=== PATIENT | male | born 1970 | race Caucasian/White ===

== ENCOUNTER 2019-01-03 16:05 | Emergency (ER) | payer SELFPAY ==
--- NOTE | 2019-01-03 16:50 | ED ---
Substance Abuse/Use - HPI Summary HPI Summary: A 48 y/o male brought in by police presents to [facility] with a chief complaint of being brought in on a 2209 on 01/03/19. At triage he rated his pain as a 0/10 in severity. Pt denies any fever, chills, erythema of eyes, sore throat, CP, SOB , cough, abdominal pain, N/V, dysuria, hematuria, myalgia, edema, rash, or dizziness. He reports that he has been living with her mom but she moved away and he was not allowed to go with her, which he reports is fine. He says that he was partying too hard, as he drinks beer daily, smokes cigarettes, and says hell have marijuana if someone passes it to him. He reports that he was living in a shed with a space heater, and is unsure where he will go afterwards. He claims that his last drink was while being arrested. He claims that he does not know what it is like to go without a drink. He denies taking any medications and is not looking to detox. Vital signs while in room HR: 121bpm, O2 Sat: 95, BP: 145/102. - History Of Current Complaint Chief Complaint: EDSubstanceAbuse Stated Complaint: INTOXICATED/2208 PER POLICE Time Seen by Provider: 01/03/19 16:35 Hx Obtained From: Patient, Other: - police Onset/Duration of Drug/ETOH Abuse: Days Ingestion History: Type/Name Of Drug - EtOH, Amount Ingested - unknown, Approximate Time Of Ingestion - unknown Overdose Characteristics: Oral Timing Of Abuse: Daily Severity Initially: Mild Severity Currently: Mild Character: Other - "partying too hard" Aggravating Factor(s): Nothing Alleviating Factor(s): Nothing Associated Signs And Symptoms: Negative - fever, chills, erythema of eyes, sore throat, CP, SOB, cough, abdominal pain, N/V, dysuria, hematuria, myalgia, edema , rash, or dizziness. - Allergies/Home Medications Allergies/Adverse Reactions: Allergies Allergy/AdvReac Type Severity Reaction Status Date / Time Penicillins Allergy Anaphylatic Verified 01/03/19 16:15 Shock PMH/Surg Hx/FS Hx/Imm Hx Infectious Disease History: No Infectious Disease History: Denies: Traveled Outside the [place] in Last 30 Days - Social History Alcohol Use: Daily Substance Use Type: Reports: Marijuana Smoking Status (MU): Heavy Every Day Tobacco Smoker Review of Systems Negative: Fever, Chills Negative: Erythema Negative: Sore Throat Negative: Chest Pain Negative: Shortness Of Breath, Cough Negative: Abdominal Pain, Vomiting, Nausea Negative: dysuria, hematuria Negative: Myalgia, Edema Negative: Rash Neurological: Negative - dizziness Psychological: Other - Positive: brought in on a 2209, EtOH intoxication All Other Systems Reviewed And Are Negative: Yes Physical Exam - Summary Physical Exam Summary: Constitutional: Well-developed, Well-nourished, Alert. (-) Distressed Skin: Warm, Dry HENT: Normocephalic; Atraumatic Eyes: Nystagmus, conjunctiva normal Neck: Musculoskeletal ROM normal neck. (-) JVD, (-) Stridor, (-) Tracheal deviation Cardio: Rhythm regular, rate normal, Heart sounds normal; Intact distal pulses; The pedal pulses are 2+ and symmetric. Radial pulses are 2+ and symmetric. (-) Murmur Pulmonary/Chest wall: Effort normal. (-) Respiratory distress, (-) Wheezes, (-) Rales Abd: Soft, (-) tenderness, (-) Distension, (-) Guarding, (-) Rebound Musculoskeletal: (-) Edema Lymph: (-) Cervical adenopathy Neuro: Alert, Oriented x3 Psych: Mood and affect Normal Triage Information Reviewed: Yes Vital Signs On Initial Exam: Initial Vitals Temp Pulse Resp BP Pulse Ox 99.4 F 121 16 138/99 96 01/03/19 16:12 01/03/19 16:12 01/03/19 16:12 01/03/19 16:12 01/03/19 16:12 Vital Signs Reviewed: Yes Diagnostics - Vital Signs Vital Signs Temp Pulse Resp BP Pulse Ox 01/03/19 16:12 99.4 F 121 16 138/99 96 - Laboratory Lab Statement: Any lab studies that have been ordered have been reviewed, and results considered in the medical decision making process. Course/Dx - Course Course Of Treatment: A 48 y/o male brought in by police presents to [facility] with a chief complaint of being brought in on a 2209 on 01/03/19. At triage he rated his pain as a 0/10 in severity. Pt denies any fever, chills, erythema of eyes, sore throat, CP, SOB, cough, abdominal pain, N/V, dysuria, hematuria, myalgia, edema, rash, or dizziness. He reports that he has been living with her mom but she moved away and he was not allowed to go with her, which he reports is fine. He says that he was partying too hard, as he drinks beer daily, smokes cigarettes, and says hell have marijuana if someone passes it to him. He reports that he was living in a shed with a space heater, and is unsure where he will go afterwards. He claims that his last drink was while being arrested. He claims that he does not know what it is like to go without a drink. He denies taking any medications and is not looking to detox. The physical exam revealed nystagmus. In the ED course he was given 10mg Nicotine INH. Serum alcohol 389 at 17:02. This patient will be signed out to Dr. Morrison at 22:00 06/16 pending sobriety. - Diagnoses Provider Diagnoses: Homelessness, Alcoholism Discharge - Sign-Out/Discharge Documenting (check all that apply): Sign-Out Patient Signing out patient TO: Warren Morrison - pending sobriety Patient Received Moderate/Deep Sedation with Procedure: No - Discharge Plan Condition: Stable - Attestation Statements Document Initiated by Scribe: Yes Documenting Scribe: Ion Tubbs Provider For Whom Scribe is Documenting (Include Credential): Juancarlos Hampton MD Scribe Attestation: I, Ion Tubbs, scribed for Juancarlos Hampton MD on 01/03/19 at [id number].
[2019-01-03] MEDS ORDERED: Nicotine Inhaler* 10 MG AMP INH ONE (16:52)
--- NOTE | 2019-01-03 23:51 | ED ---
Progress - Progress Note Progress Note: This patient was signed out from Dr. Hampton upon shift change pending sobriety and disposition. Course/Dx - Course Course Of Treatment: This patient was signed out from Dr. Hampton upon shift change pending sobriety and disposition. A 48 y/o male brought in by police presents to [facility] with a chief complaint of being brought in on a 2209 on . Patient will be discharged home with follow up from PCP. Patient is agreeable with this plan. - Diagnoses Provider Diagnoses: Alcohol intoxication Discharge - Sign-Out/Discharge Documenting (check all that apply): Patient Departure - Discharge home Patient Received Moderate/Deep Sedation with Procedure: No - Discharge Plan Condition: Stable Disposition: HOME Patient Education Materials: Alcohol Intoxication (ED) Referrals: [facility] [place] PHYSICIAN REFERRAL [Outside] - 2 Days Additional Instructions: RETURN TO THE EMERGENCY DEPARTMENT FOR NEW OR WORSENING SYMPTOMS - Attestation Statements Document Initiated by Scribe: Yes Documenting Scribe: Augustina Martínez Provider For Whom Scribe is Documenting (Include Credential): Dr. Warren Morrison MD Scribe Attestation: Augustina Retana, scribed for Dr. Warren Morrison MD on 01/03/19 at 2350. Status of Scribe Document: Ready
== END 2019-01-04 00:03 | disposition home or self-care (01) ==
LOC: ED 16:05
DX: F10.229 Alcohol dependence with intoxication, unspecified (principal); F17.210 Nicotine dependence, cigarettes, uncomplicated; Z59.0 Homelessness; Z88.0 Allergy status to penicillin
CPT/HCPCS: 36415; 80320; 99283; G0480